=== PATIENT | female | born 1985 | race Caucasian/White ===

== ENCOUNTER 2019-12-17 11:29 | Outpatient (REF) | payer MEDICAID, SELFPAY ==
[2019-12-17 19:45] LABS: Abs Immature Grans 0.01 10^3/uL (0.0-0.06); Absolute Basophil Count 0.03 10^3/uL (0.0-0.2); Absolute Eosinophil Count 0.14 10^3/uL (0.0-0.7); Absolute Lymphocyte Count 2.06 10^3/uL (1.2-3.4); Absolute Monocyte Count 0.33 10^3/uL (0.1-0.8); Absolute Neutrophil Count 3.42 10^3/uL (1.2-6.7); Basophils % 0.5; Eosinophils % 2.3; HCT 36.4 % (36.0-46.0); HGB 12.7 g/dL (11.2-15.7); Immature Grans % 0.2; Lymphocytes % 34.4; MCH 32.3 pg (27.0-33.0); MCHC 34.9 % (32.0-36.0); MCV 92.6 fL (80-95); MPV 9.6 fL (8.0-11.0); Monocytes % 5.5; Neutrophils % 57.1; Nucleated RBC 0 %; Platelet Count 194 10^3/uL (130-400); RBC 3.93 10^6/uL (3.93-5.22); RDW 11.7 % (11.7-14.6); RDW-SD 39.7 fL; WBC 5.99 10^3/uL (4.4-10.8)
[2019-12-17 20:02] LABS: ALT 18 U/L (14-59); AST 13 U/L (15-37); Albumin 3.7 g/dL (3.4-5.0); Alkaline Phosphatase 51 U/L (46-116); Anion Gap 7.1 mmol/L (3-11); BUN 14 mg/dL (7-18); Bilirubin, Total 0.5 mg/dL (0.2-1.0); CO2 28.9 mmol/L (21.0-32.0); CREATININE 0.79 mg/dL (0.55-1.02); Calcium 8.2 mg/dL (8.5-10.1); Calculated LDL 142 mg/dL (<100); Chloride 107 mmol/L (98-107); Cholesterol 225 mg/dL (<200); Glucose 81 mg/dL (74-106); HDL Cholesterol 64 mg/dL (40-60); Sodium 143 mmol/L (136-145); Triglyceride 97 mg/dL (<150)
== END 2019-12-17 11:49 ==
LOC: NCHCN 11:29
PROVIDERS: PCP Internal Medicine; Visit Provider Physician Assistant
DX: F41.8 Other specified anxiety disorders (principal)
CPT/HCPCS: 80053; 80061; 85025

== ENCOUNTER 2020-07-21 12:01 | Outpatient (REF) | payer MEDICAID, SELFPAY ==
--- NOTE | 2020-07-21 11:30 | PAPFT_PTH ---
PATIENT: Galilea Marin LOC: [facility] U#:[id number] AGE/SX: 35/F ROOM: RE07/21/[address]: CELSO Mckeon : 1985 BED: DIS: 07/21/2020 SPEC #: [id number] RECD: 07/21/20 17:39 STATUS: AMPARO RENick #: [id number] LISETTE: 07/21/20 11:[address]: Mary Deutsch DEPT: [facility] Cytology RECD BY: Yoselin Hernandez ENTERED: 07/21/20 17:39 SP TYPE: PAPFT OTHR DR: Carlos Reddy Tissues: 1 - CX/ENDOCX FOR PAP SMEARS Procedures: PAP THIN PREP/[facility] Screening HPV DNA PROBE Comments: [id number]
== END 2020-07-21 12:02 | disposition home or self-care (01) ==
LOC: LBN 12:01
PROVIDERS: PCP Internal Medicine; Visit Provider Nurse Practitioner Family
DX: Z12.4 Encounter for screening for malignant neoplasm of cervix (principal); Z11.51 Encounter for screening for human papillomavirus (HPV)
CPT/HCPCS: 88142; 87624

== ENCOUNTER 2021-02-26 10:22 | Outpatient (REF) | payer MEDICAID, SELFPAY ==
[2021-02-26 23:04] LABS: BUN 12 mg/dL (7-18); Calcium 8.4 mg/dL (8.5-10.1); Glucose 74 mg/dL (74-106)
[2021-02-26 23:11] LABS: CREATININE 0.8 mg/dL (0.55-1.02)
[2021-02-26 23:12] LABS: Calculated LDL 165 mg/dL (<100); Chloride 102 mmol/L (98-107); Cholesterol 258 mg/dL (<200); HDL Cholesterol 72 mg/dL (40-60); Potassium 4.1 mmol/L (3.5-5.1); Sodium 140 mmol/L (136-145); Triglyceride 106 mg/dL (<150)
== END 2021-02-26 10:23 | disposition home or self-care (01) ==
LOC: NCHCN 10:22
PROVIDERS: PCP Internal Medicine; Visit Provider Physician Assistant
DX: E78.5 Hyperlipidemia, unspecified (principal); F41.8 Other specified anxiety disorders
CPT/HCPCS: 80048; 80061

== ENCOUNTER 2022-04-29 17:20 | Outpatient (REF) | payer MEDICAID, SELFPAY ==
[2022-04-29 19:24] LABS: Abs Immature Grans 0.02 10^3/uL (0.0-0.06); Absolute Basophil Count 0.04 10^3/uL (0.0-0.2); Absolute Eosinophil Count 0.09 10^3/uL (0.0-0.7); Absolute Lymphocyte Count 2.57 10^3/uL (1.2-3.4); Absolute Monocyte Count 0.36 10^3/uL (0.1-0.8); Absolute Neutrophil Count 4.55 10^3/uL (1.2-6.7); Basophils % 0.5; Eosinophils % 1.2; HCT 38.2 % (36.0-46.0); HGB 13.3 g/dL (11.2-15.7); Immature Grans % 0.3; Lymphocytes % 33.7; MCH 31.6 pg (27.0-33.0); MCHC 34.8 % (32.0-36.0); MCV 91 fL (80-95); MPV 9.3 fL (8.0-11.0); Monocytes % 4.7; Neutrophils % 59.6; Platelet Count 243 10^3/uL (130-400); RBC 4.21 10^6/uL (3.93-5.22); RDW 11.7 % (11.7-14.6); RDW-SD 38.3 fL; WBC 7.63 10^3/uL (4.4-10.8)
[2022-04-29 19:46] LABS: ALT 24 U/L (14-59); AST 26 U/L (15-37); Alkaline Phosphatase 76 U/L (46-116); Anion Gap 6.9 mmol/L (3-11); BUN 10 mg/dL (7-18); Bilirubin, Total 0.4 mg/dL (0.2-1.0); CO2 28.1 mmol/L (21.0-32.0); CREATININE 0.9 mg/dL (0.55-1.02); Calcium 8.9 mg/dL (8.5-10.1); Chloride 103 mmol/L (98-107); Estimated GFR 83.92 (mL/min/1.73m2); Glucose 107 mg/dL (74-106); Potassium 3.8 mmol/L (3.5-5.1); Sodium 138 mmol/L (136-145); TSH (W/Ref FT4) 2.41 uIU/mL (0.36-3.74)
[2022-04-29 20:25] LABS: LDL CHOLESTEROL 168 mg/dL (<100); Vitamin B12 425 pg/mL (193-986)
== END 2022-04-29 17:21 | disposition home or self-care (01) ==
LOC: NCHCN 17:20
PROVIDERS: PCP Internal Medicine; Visit Provider Physician Assistant
DX: E78.5 Hyperlipidemia, unspecified (principal); F41.8 Other specified anxiety disorders; R53.83 Other fatigue; R79.89 Other specified abnormal findings of blood chemistry; E67.3 Hypervitaminosis D; Z79.899 Other long term (current) drug therapy
CPT/HCPCS: 80053; 82306; 83721; 82607; 84443; 85025

== ENCOUNTER 2022-05-26 14:55 | Outpatient (REF) | payer MEDICAID, SELFPAY ==
[2022-05-27 21:14] LABS: Parathyroid Hormone,Intact 28 pg/mL (19-88)
== END 2022-05-26 14:56 | disposition home or self-care (01) ==
LOC: NCHCN 14:55
PROVIDERS: PCP Internal Medicine; Visit Provider Physician Assistant
DX: E67.3 Hypervitaminosis D (principal)
CPT/HCPCS: 83970

== ENCOUNTER 2023-02-03 18:54 | Outpatient (REF) | payer MEDICAID, SELFPAY ==
[2023-02-03 18:41] LABS: Calculated LDL 166 mg/dL (<100); Cholesterol 251 mg/dL (<200); HDL Cholesterol 73 mg/dL (40-60); TSH (W/Ref FT4) 2.21 uIU/mL (0.36-3.74); Triglyceride 62 mg/dL (<150)
[2023-02-03 18:52] LABS: Vitamin D 25 Total 41.6 ng/mL (30-100)
== END 2023-02-03 18:55 | disposition home or self-care (01) ==
LOC: NCHCN 18:54
PROVIDERS: PCP Internal Medicine; Visit Provider Physician Assistant
DX: E67.3 Hypervitaminosis D (principal); E78.5 Hyperlipidemia, unspecified; R00.2 Palpitations
CPT/HCPCS: 80061; 82306; 84443

== ENCOUNTER 2023-10-03 15:20 | Outpatient (REF) | payer MEDICAID, SELFPAY ==
[2023-10-03 20:09] LABS: Vitamin D 25 Total 41.5 ng/mL (30-100)
== END 2023-10-03 15:21 | disposition home or self-care (01) ==
LOC: NCHCN 15:20
PROVIDERS: PCP Internal Medicine; Visit Provider Physician Assistant
DX: E67.3 Hypervitaminosis D (principal)
CPT/HCPCS: 82306

== ENCOUNTER 2023-12-19 13:52 | Outpatient (REF) | payer MEDICAID, SELFPAY ==
--- NOTE | 2023-12-19 13:30 | PAPFT_PTH ---
PATIENT: Galilea Marin LOC: [facility] U#:[id number] AGE/SX: 38/F ROOM: RE12/19/[address]: Dipti Lovelace NP : 1985 BED: DIS: 12/19/2023 SPEC #: [id number] RECD: 12/19/23 17:22 STATUS: AMPARO NEVAREZ #: [id number] LISETTE: 12/19/23 13:[address]: Dipti Lovelace NP DEPT: [facility] Cytology RECD BY: Yoselin Hernandez ENTERED: 12/19/23 17:23 SP TYPE: PAPFT OTHR DR: Carlos Reddy Tissues: 1 - CX/ENDOCX FOR PAP SMEARS Procedures: PAP THIN PREP/[facility] Screening HPV DNA PROBE Comments: [id number] (HPV 16 & 18/45)
== END 2023-12-19 13:53 | disposition home or self-care (01) ==
LOC: LBN 13:52
PROVIDERS: PCP Internal Medicine; Visit Provider Nurse Practitioner Women's Health
DX: Z12.4 Encounter for screening for malignant neoplasm of cervix (principal)
CPT/HCPCS: 88142; 87624

== ENCOUNTER 2024-10-29 16:47 | Outpatient (REF) | payer MEDICAID, SELFPAY ==
[2024-10-29 19:59] LABS: ALT 22 U/L (14-59); AST 19 U/L (15-37); Albumin 3.7 g/dL (3.4-5.0); Alkaline Phosphatase 71 U/L (46-116); Anion Gap 9.3 mmol/L (3-11); BUN 13 mg/dL (7-18); Bilirubin, Total 0.5 mg/dL (0.2-1.0); CO2 27.7 mmol/L (21.0-32.0); Calcium 8.8 mg/dL (8.5-10.1); Calculated LDL 168 mg/dL (<100); Chloride 102 mmol/L (98-107); Cholesterol 266 mg/dL (<200); Estimated GFR 112.05 (mL/min/1.73m2); Glucose 87 mg/dL (74-106); HDL Cholesterol 81 mg/dL (>or=50); Potassium 4.0 mmol/L (3.5-5.1); Sodium 139 mmol/L (136-145); Total Protein 7.5 g/dL (6.4-8.2); Triglyceride 86 mg/dL (<150)
[2024-10-30 19:40] LABS: Hepatitis C Ab w Rflx HCV PCR Negative (Negative)
[2024-10-30 19:42] LABS: HIV-1/2 Ag & Ab Screen Negative (Negative)
== END 2024-10-29 16:48 | disposition home or self-care (01) ==
LOC: NCHCN 16:47
PROVIDERS: PCP Internal Medicine; Visit Provider Physician Assistant
DX: Z11.4 Encounter for screening for human immunodeficiency virus [HIV] (principal); Z11.59 Encounter for screening for other viral diseases; E78.5 Hyperlipidemia, unspecified
CPT/HCPCS: 80053; 80061; 86803; 87389

== ENCOUNTER 2025-01-28 02:14 | Outpatient (CLI) | payer MEDICAID, SELFPAY ==
--- NOTE | 2025-01-28 12:09 | DI.MAMMO_ITS ---
Exam(s) MAMMO SCREENING EXAM: MAMMO SCREENING CLINICAL HISTORY: screening TECHNIQUE: Mammograms were interpreted according to the usual protocol including computer analysis with CAD system, tomosynthesis and C-view imaging. COMPARISON: None. Baseline examination. FINDINGS: The breasts are composed of heterogeneously dense fibroglandular densities, Breast Density category C. No suspicious masses or suspicious microcalcifications are seen. No skin thickening or abnormal axillary lymph nodes are seen. IMPRESSION: BI-RADS Category 1, Negative mammogram. Yearly screening mammography is recommended. Breast Density: Category C - The breasts are heterogeneously dense, which may obscure small masses. Breast density Category C or D implies that the patient has dense breast tissue. Dense breast tissue can make it harder to find cancer on a mammogram. Dense breast tissue is also associated with an increased risk of breast cancer. This information about the result of the mammogram report was provided to the patient to raise their awareness. Use this report when you speak with the patient about their risks for breast cancer, which includes their family history. At that time, you may recommend additional screening tests (Ultrasound or MRI) as these tests may add significant information. A negative radiographic report should not delay biopsy if a dominant or clinically suspicious mass is present. Up to ten percent of cancers are not identified on mammography. A negative report may reinforce clinical impression. Adenosis and dense breasts may obscure an underlying neoplasm. False positive reports average 6 to 10%.
== END 2025-01-28 02:34 ==
PROVIDERS: PCP Internal Medicine; Visit Provider Nurse Practitioner Women's Health
DX: Z12.31 Encounter for screening mammogram for malignant neoplasm of breast (principal); R92.323 Mammographic fibroglandular density, bilateral breasts; R92.333 Mammographic heterogeneous density, bilateral breasts
CPT/HCPCS: 77063; 77067